=== PATIENT | female | born 1950 | race Caucasian/White ===

== ENCOUNTER 2018-11-30 07:22 | Observation (INO) | payer MEDICARE, OTHER ==
[2018-11-30] MEDS: SOD CHLORIDE 0.9% 1,000 ML IV (06:00)
[2018-11-30] MEDS: CEFAZOLIN 2 GM/50 ML (PMX) 50 ML IVPB (06:00)
[2018-11-30] MEDS: hydrALAzine 20 MG INJ IV (08:30)
[2018-11-30 11:20] LABS: POTASSIUM 4.2 mmol/L (3.5-5.1)
[2018-11-30] MEDS ORDERED: LIDOCAINE 2% (SDV) 5 ML INJ (12:19)
[2018-11-30] MEDS ORDERED: CEFAZOLIN 1 GM INJ (12:19)
[2018-11-30] MEDS ORDERED: MEPERIDINE 100 MG INJ (12:19)
[2018-11-30] MEDS ORDERED: PROPOFOL 20 ML (12:19)
[2018-11-30] MEDS ORDERED: ONDANSETRON 4 MG INJ (12:22)
[2018-11-30] MEDS ORDERED: METOCLOPRAMIDE 10 MG INJ (12:22)
[2018-11-30] MEDS ORDERED: ISOSULFAN BLUE 1% 5 ML INJ SC (12:24)
[2018-11-30] MEDS ORDERED: EPHEDrine 50 MG INJ ×3 (12:48→14:12)
[2018-11-30] MEDS ORDERED: LABETALOL HCL 20MG INJ IV (13:30)
[2018-11-30] MEDS ORDERED: DIPHENHYDRAMINE 50 MG INJ IV (13:30)
[2018-11-30] MEDS ORDERED: MEPERIDINE 25 MG INJ IV (13:30)
[2018-11-30] MEDS ORDERED: MIDAZOLAM 1 MG/ML 2 ML INJ IV (13:30)
[2018-11-30] MEDS ORDERED: HYDROmorphONE 1 MG/5 ML IV SYRINGE IV ×3 (13:30)
[2018-11-30] MEDS ORDERED: ONDANSETRON 4 MG INJ IV (13:30)
[2018-11-30] MEDS ORDERED: OXYCODONE/ACETAMINOPHEN (5/325) TAB PO ×2 (13:30)
[2018-11-30] MEDS ORDERED: hydrALAzine 20 MG INJ IV (13:30)
[2018-11-30] MEDS ORDERED: FENTAnyl 50 MCG/ML VIAL IV ×3 (13:30)
[2018-11-30] MEDS ORDERED: METOCLOPRAMIDE 10 MG INJ IV (13:30)
[2018-11-30] MEDS ORDERED: EPHEDrine SULFATE 50 MG/5 ML SYG IV (13:30)
[2018-11-30] MEDS ORDERED: D5W-0.45 NACL + KCL 20 MEQ 1,000 ML IV (13:45)
[2018-11-30] MEDS ORDERED: ACETAMINOPHEN 1000MG/100ML IV 100 ML IVPB (14:00)
[2018-11-30] MEDS ORDERED: morphine 2 MG INJ IV (14:00)
[2018-11-30] MEDS ORDERED: SOD CHLORIDE 0.45% 1,000 ML IV (18:10)
[2018-11-30] MEDS: ONDANSETRON 4 MG INJ IV (18:22)
[2018-11-30] MEDS ORDERED: ZOLPIDEM 5 MG TAB PO (18:30)
[2018-11-30] MEDS ORDERED: DOCUSATE SODIUM 100 MG CAP PO (18:30)
[2018-11-30] MEDS ORDERED: GLUCAGON 1 MG INJ IM (18:30)
[2018-11-30] MEDS ORDERED: BISACODYL (EC) 5 MG TAB PO (18:30)
[2018-11-30] MEDS ORDERED: GLUCOSE GEL 15 GRAM TUBE PO ×2 (18:30)
[2018-11-30] MEDS ORDERED: DEXTROSE 50% 50 ML SYRINGE IV ×2 (18:30)
[2018-11-30] MEDS ORDERED: GLUCOSE GEL 15 GRAM TUBE BUCCAL (18:30)
[2018-11-30] MEDS: INSULIN ASPART [NOVOLOG] 3 ML PEN SC ×3 (19:06→20:19)
[2018-11-30] MEDS: SOD CHLORIDE 0.45% 1,000 ML IV (19:08)
[2018-11-30] MEDS: SEVELAMER CARBONATE 0.8 GM PKT PO (19:09)
[2018-11-30] MEDS: FAMOTIDINE 20 MG TAB PO (20:16)
[2018-11-30] MEDS: INSULIN GLARGINE [LANTus] (100 UNITS/ML) SYG SC (20:20)
[2018-11-30] MEDS: ACETAMINOPHEN 325 MG TAB PO (20:27)
[2018-12-01] MEDS: ACCU-CHEK XX ×2 (01:16)
[2018-12-01] MEDS: HYDROCODONE/APAP (5/325) TAB PO (04:51)
[2018-12-01 05:17] LABS: ADD MAN DIFF? NO
[2018-12-01 05:21] LABS: BASOPHILS % 0.3 % (0.0-2.0); EOSINOPHILS # 0.1 10^3/ul (0.0-0.5); EOSINOPHILS % 1.8 % (0.0-7.0); HEMATOCRIT 28.5 % (37.0-47.0); HEMOGLOBIN 9.4 g/dl (12.0-16.0); LYMPHOCYTES # 2.2 10^3/ul (0.8-2.9); LYMPHOCYTES % 32.4 % (15.0-51.0); MEAN CORPUSCULAR HEMOGLOBIN 33.2 pg (29.0-33.0); MEAN CORPUSCULAR VOLUME 100.7 fl (82.0-101.0); MEAN PLATELET VOLUME 11.3 fl (7.4-10.4); MONOCYTE # 0.6 10^3/ul (0.3-0.9); MONOCYTES % 9.4 % (0.0-11.0); NEUTROPHIL # 3.7 10^3/ul (1.6-7.5); NEUTROPHILS % 55.7 % (39.0-77.0); NUCLEATED RED BLOOD CELLS% 0.3 /100WBC (0.0-0.0); PLATELET COUNT 158 10^3/UL (140-415); RED BLOOD COUNT 2.83 10^6/ul (4.20-5.40)
[2018-12-01 05:21] LABS: WHITE BLOOD COUNT 6.7 10^3/ul (4.8-10.8)
[2018-12-01 05:38] LABS: HEMOGLOBIN A1C 6.3 % (0-5.9)
[2018-12-01 05:53] LABS: ANION GAP 19 (5-13); Estimated GFR 6 mL/min (>60)
[2018-12-01 06:00] LABS: BLOOD UREA NITROGEN 41 mg/dl (7-20); CALCIUM 9.2 mg/dl (8.4-10.2); CARBON DIOXIDE 24 mmol/L (21-31); CHLORIDE 99 mmol/L (97-110); CREATININE 6.94 mg/dl (0.44-1.00); GLUCOSE 142 mg/dl (70-220); POTASSIUM 4.6 mmol/L (3.5-5.1); SODIUM 142 mmol/L (135-144)
[2018-12-01] MEDS: INSULIN ASPART [NOVOLOG] 3 ML PEN SC ×6 (08:42→20:30)
[2018-12-01] MEDS: SEVELAMER CARBONATE 0.8 GM PKT PO ×3 (08:47→20:23)
[2018-12-01] MEDS: FAMOTIDINE 20 MG TAB PO ×2 (08:48→20:28)
[2018-12-01] MEDS: ONDANSETRON 4 MG INJ IV ×3 (09:53→20:29)
[2018-12-01] MEDS: BUMETANIDE 1 MG TAB PO (10:30)
[2018-12-01] MEDS: SOD CHLORIDE 0.45% 1,000 ML IV (11:10)
[2018-12-01 11:35] LABS: HEPATITIS B SURFACE ANTIGEN NEGATIVE (NEGATIVE)
[2018-12-01] MEDS ORDERED: SODIUM CHLORIDE 0.9% 1L BAG IV (12:00)
[2018-12-01] MEDS: AL HYDROX/MG HYDROX/SIMETH 30 ML CUP PO (15:10)
[2018-12-01 18:26] LABS: CREATINE KINASE 369 IU/L (23-200)
[2018-12-01 18:29] LABS: HEPATITIS B SURFACE ANTIBODY NEGATIVE (NEGATIVE)
[2018-12-01 18:37] LABS: CK-MB 3.56 ng/ml (0.0-2.4); TROPONIN-I 0.022 ng/ml (0.000-0.120)
[2018-12-01] MEDS: INSULIN GLARGINE [LANTus] (100 UNITS/ML) SYG SC (20:28)
[2018-12-02 01:10] LABS: CREATINE KINASE 315 IU/L (23-200)
[2018-12-02 01:22] LABS: CK INDEX 0.9; CK-MB 2.96 ng/ml (0.0-2.4); TROPONIN-I 0.032 ng/ml (0.000-0.120)
[2018-12-02] MEDS: ACCU-CHEK XX ×2 (01:57)
[2018-12-02] MEDS: SOD CHLORIDE 0.45% 1,000 ML IV (03:50)
[2018-12-02 05:17] LABS: ADD MAN DIFF? NO
[2018-12-02 05:23] LABS: BASOPHILS % 0.4 % (0.0-2.0); EOSINOPHILS # 0.1 10^3/ul (0.0-0.5); EOSINOPHILS % 2.9 % (0.0-7.0); HEMOGLOBIN 9.5 g/dl (12.0-16.0); LYMPHOCYTES # 1.6 10^3/ul (0.8-2.9); LYMPHOCYTES % 32.4 % (15.0-51.0); MEAN CORPUSCULAR HEMOGLOBIN 32.8 pg (29.0-33.0); MEAN CORPUSCULAR HGB CONC 31.7 g/dl (32.0-37.0); MEAN CORPUSCULAR VOLUME 103.4 fl (82.0-101.0); MEAN PLATELET VOLUME 10.9 fl (7.4-10.4); MONOCYTE # 0.4 10^3/ul (0.3-0.9); MONOCYTES % 8.8 % (0.0-11.0); NEUTROPHIL # 2.7 10^3/ul (1.6-7.5); NEUTROPHILS % 55.1 % (39.0-77.0); PLATELET COUNT 152 10^3/UL (140-415); RED CELL DISTRIBUTION WIDTH 14.8 % (11.5-14.5)
[2018-12-02 05:23] LABS: WHITE BLOOD COUNT 4.9 10^3/ul (4.8-10.8)
[2018-12-02 05:49] LABS: CREATINE KINASE 332 IU/L (23-200)
[2018-12-02 05:50] LABS: ANION GAP 12 (5-13); BLOOD UREA NITROGEN 24 mg/dl (7-20); CALCIUM 9.8 mg/dl (8.4-10.2); CARBON DIOXIDE 31 mmol/L (21-31); CHLORIDE 100 mmol/L (97-110); CREATININE 5.24 mg/dl (0.44-1.00); Estimated GFR 8 mL/min (>60); GLUCOSE 131 mg/dl (70-220); POTASSIUM 5.3 mmol/L (3.5-5.1); SODIUM 143 mmol/L (135-144)
[2018-12-02 06:02] LABS: CK-MB 2.71 ng/ml (0.0-2.4); TROPONIN-I 0.029 ng/ml (0.000-0.120)
[2018-12-02 06:04] LABS: CK INDEX 0.8
[2018-12-02 06:14] LABS: CHOLESTEROL 154 mg/dl (100-200)
[2018-12-02 06:14] LABS: CHOL/HDL RATIO 3.7 RATIO; HDL CHOLESTEROL 41 mg/dl (33-92); LDL CHOLESTEROL,CALCULATED 58 mg/dl; TRIGLYCERIDES 273 mg/dl (0-149)
[2018-12-02] MEDS: INSULIN ASPART [NOVOLOG] 3 ML PEN SC ×7 (08:51→21:00)
[2018-12-02] MEDS: SEVELAMER CARBONATE 0.8 GM PKT PO ×3 (08:55→18:32)
[2018-12-02] MEDS: FAMOTIDINE 20 MG TAB PO ×2 (08:56→21:22)
[2018-12-02] MEDS: BUMETANIDE 1 MG TAB PO (10:31)
[2018-12-02] MEDS: NA POLYST SULFON 15 GM/60 ML BTL PO (10:32)
[2018-12-02] MEDS: ONDANSETRON 4 MG INJ IV (13:24)
[2018-12-02] MEDS: INSULIN GLARGINE [LANTus] (100 UNITS/ML) SYG SC (22:06)
[2018-12-03] MEDS: ACCU-CHEK XX (03:00)
[2018-12-03 06:54] LABS: ADD MAN DIFF? NO
[2018-12-03 06:57] LABS: BASOPHILS % 0.4 % (0.0-2.0); EOSINOPHILS # 0.2 10^3/ul (0.0-0.5); EOSINOPHILS % 3.2 % (0.0-7.0); HEMATOCRIT 31.3 % (37.0-47.0); LYMPHOCYTES # 1.8 10^3/ul (0.8-2.9); LYMPHOCYTES % 32.4 % (15.0-51.0); MEAN CORPUSCULAR HEMOGLOBIN 32.8 pg (29.0-33.0); MEAN CORPUSCULAR HGB CONC 31.9 g/dl (32.0-37.0); MEAN CORPUSCULAR VOLUME 102.6 fl (82.0-101.0); MEAN PLATELET VOLUME 10.3 fl (7.4-10.4); MONOCYTE # 0.5 10^3/ul (0.3-0.9); MONOCYTES % 9.5 % (0.0-11.0); PLATELET COUNT 158 10^3/UL (140-415); RED BLOOD COUNT 3.05 10^6/ul (4.20-5.40); RED CELL DISTRIBUTION WIDTH 14.5 % (11.5-14.5)
[2018-12-03 06:57] LABS: WHITE BLOOD COUNT 5.6 10^3/ul (4.8-10.8)
[2018-12-03 07:36] LABS: ANION GAP 13 (5-13); BLOOD UREA NITROGEN 38 mg/dl (7-20); CALCIUM 10.1 mg/dl (8.4-10.2); CARBON DIOXIDE 27 mmol/L (21-31); CHLORIDE 102 mmol/L (97-110); CREATININE 7.16 mg/dl (0.44-1.00); Estimated GFR 6 mL/min (>60); GLUCOSE 120 mg/dl (70-220); MAGNESIUM 2.4 mg/dl (1.7-2.5); PHOSPHORUS 5.4 mg/dl (2.5-4.9); SODIUM 142 mmol/L (135-144)
[2018-12-03] MEDS: INSULIN ASPART [NOVOLOG] 3 ML PEN SC ×6 (07:55→17:29)
[2018-12-03] MEDS: SEVELAMER CARBONATE 0.8 GM PKT PO ×3 (08:59→17:25)
[2018-12-03] MEDS ORDERED: hydrALAzine 20 MG INJ IV (09:00)
[2018-12-03] MEDS: BUMETANIDE 1 MG TAB PO (09:03)
[2018-12-03] MEDS: FAMOTIDINE 20 MG TAB PO (09:03)
== END 2018-12-03 18:30 | disposition home or self-care (01) ==
LOC: SDS 07:22 → TEL 12-02 17:17 → SDS 07:22 → TEL 12-02 17:23 → SDS 13:46 → REC 13:46 → MS1 15:35
PROVIDERS: Surgery Surgical Oncology
DX: C50.211 Malignant neoplasm of upper-inner quadrant of right female breast (principal); Z17.0 Estrogen receptor positive status [ER+]; R55 Syncope and collapse; I13.2 Hypertensive heart and chronic kidney disease with heart failure and with stage 5 chronic kidney disease, or end stage renal disease; E11.22 Type 2 diabetes mellitus with diabetic chronic kidney disease; N18.6 End stage renal disease; I50.9 Heart failure, unspecified; Z99.2 Dependence on renal dialysis; Z79.4 Long term (current) use of insulin; M89.9 Disorder of bone, unspecified; D63.1 Anemia in chronic kidney disease
CPT/HCPCS: 19301; 80048; 80061; 82550; 82553; 82962; 83036; 83735; 84100; 84132; 84443; 84484; 85025; 86706; 87340; 88307; 90935; 93005; 93306; 99217